=== PATIENT | female | born 1960 | race Caucasian/White ===

== ENCOUNTER 2025-04-29 08:55 | Outpatient (CLI) | payer MEDICARE, SELFPAY ==
--- OUTSIDE RECORDS SUMMARY | 2025-04-29 09:03 | XMS_ITS | Clinical Summary ---
Author Organization [facility] Address [address] [place] [address] Phone Care Team Providers Care Scale Balancer Name Role Phone Unavailable Primary Care Provider Unavailabl e Allergies No known active allergies Medications tirzepatide, weight loss, (Zepbound) 2.5 mg/0.5 mL Pen Injector Inject 2.5 mg by subcutaneous injection every 7 days. 2 mL 03/05/2024 12:31 PM CDT 4 Active tirzepatide (Mounjaro) 5 mg/0.5 mL Pen Injector Inject 5 mg by subcutaneous injection every 7 days. 2 mL 03/31/2024 1:33 PM CDT 4 Active tirzepatide, weight loss, (Zepbound) 5 mg/0.5 mL Pen Injector Inject 5 mg by subcutaneous injection every 7 days. 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 2 mL 2 07/14/2024 1:52 PM CDT 4 Active tirzepatide, weight loss, (Zepbound) 5 mg/0.5 mL Pen Injector Inject 5 mg by subcutaneous injection every 7 days. 2 mL 2 4 Active tirzepatide, weight loss, (Zepbound) 5 mg/0.5 mL Pen Injector Inject contents of 1 syringe (5 mg) by subcutaneous injection every 7 days. 2 mL 2 02/16/2025 2:00 PM CDT 5 Active Encounters Date Type Department Care Team Description 04/21/2025 External Device Data [facility] ABSTRACTION Provider, Abstract 04/15/2025 External Device Data [facility] ABSTRACTION Provider, Abstract 04/14/2025 External Device Data [facility] ABSTRACTION Provider, Abstract 02/11/2025 External Device Data [facility] ABSTRACTION Provider, Abstract 01/31/2025 External Device Data [facility] ABSTRACTION Provider, Abstract 01/30/2025 External Device Data [facility] ABSTRACTION Provider, Abstract 01/27/2025 External Device Data [facility] ABSTRACTION Provider, Abstract from Last 3 Months Social History Tobacco Use Types Packs/Day Years Used Date Smoking Tobacco: Never Assessed Comments Unknown Sex and Gender Information Value Date Recorded Sex Assigned at Not on file Legal 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 Gender Identity Not on file Sexual Orientation Not on file Plan of Treatment Health Maintenance Due Date Last Done Comments DTAP/TDAP/TD VACCINES (1 - Tdap) 1979 BREAST CANCER SCREENING 2000 COLORECTAL SCREENING 2005 Colorectal Cancer Screening 2005 FIT-DNA Q 3 years 2005 FIT/FOBT Q 1 year 2005 Flex Sig/CT Colonography Q 5 years 2005 PNEUMOCOCCAL VACCINE 50+ YEARS (1 of 1 - PCV) 04/04/20 10 ZOSTER VACCINE (1 of 2) 2010 INFLUENZA VACCINE (#1) 2024 OSTEOPOROSIS SCREENING 2025 RSV VACCINE (60+ or ) (1 - 1-dose 75+ series) 2035 Insurance RX [employer] Commercial RX [facility] [employer] Ne[employer], [employer] Commercial RX PHARM[facility]Y [employer], [facility] Commercial RX [employer] Member Subscriber Plan / Payer (Ef fective for All Dates) Name:Alma Ocasio Relation to Subscriber:Self Name:Alma Ocasio Payer ID:Not on file Group ID:[id number] Type:RX Commercial Address: [address]
--- OUTSIDE RECORDS SUMMARY | 2025-04-29 09:04 | XMS_ITS | Patient Health Record ---
Author Organization [facility] Address [address] [place] [address] Care Team Providers Care Manager Event Name Role Phone Walker (retired) Shannon WEISS Primary Care Provid er Unavailable ALEXUS GARCIA, OSWALD Unavailable Reason For Referral No Information Plan Of Treatment No Information Insurance Providers Payer Name Payer Address Payer Phone Subscriber Number Group Number Insured Name Patient Relationship to Insured Coverage Start Date Coverage End Date [facility] [address] [place], [place] [id number] Amarjit Alma Self - patient is the insured
== END 2025-04-29 08:56 | disposition home or self-care (01) ==
LOC: ANHAUDIO 08:56
PROVIDERS: PCP Family Medicine; Visit Provider Otolaryngology
DX: H93.19 Tinnitus, unspecified ear (principal); R42 Dizziness and giddiness; H74.8X2 Other specified disorders of left middle ear and mastoid; R49.9 Unspecified voice and resonance disorder; K21.9 Gastro-esophageal reflux disease without esophagitis; H73.92 Unspecified disorder of tympanic membrane, left ear; H90.3 Sensorineural hearing loss, bilateral
CPT/HCPCS: 92557; 92567

== ENCOUNTER 2025-09-11 12:54 | Outpatient (CLI) | payer MEDICARE, SELFPAY ==
--- NOTE | ~2025-09-11 | CT_ITS ---
EXAMINATION: CT sinus wo con COMPARISON: None HISTORY: Unspecified voice and resonance disorder, sinusitis TECHNIQUE: Axial images were obtained without IV contrast. Sagittal, coronal reconstruction images were obtained from the axial views. CT scan performed using dose optimization techniques including the following automated exposure control; adjustment of mA and/or kV; use of iterative reconstruction technique. Automatic exposure control was used to reduce radiation dose. Permanent radiation dose record is archived to PACS. FINDINGS: Visualized brain parenchyma, optic globes and soft tissues are unremarkable. The frontal sinuses are unremarkable. Minimal mucosal thickening in the ethmoidal air cells. Minimal mucosal thickening in the maxillary sinuses. The ostiomeatal complexes are patent. Nasal septum is deviated to the left with mild thickening of the turbinates and mild narrowing of the left nasal cavity. The sphenoid sinuses are unremarkable. There is no osseous destruction or wall thickening identified. IMPRESSION: Minimal sinusitis. Reviewed, dictated and finalized at location P. IMPRESSION: Minimal sinusitis.
--- NOTE | ~2025-09-11 | XR_ITS ---
EXAMINATION: XR hip BI 2V w AP pelvis, 09/11/2025 12:59 CDT HISTORY: M25.551 - Pain in right hip COMPARISON: No comparisons available. Findings: No acute fracture or malalignment. Severe bilateral degenerative changes Soft tissues unremarkable. Impression: No acute fracture or malalignment. Reviewed, dictated and finalized at location P. Impression: No acute fracture or malalignment.
== END 2025-09-11 12:55 | disposition home or self-care (01) ==
LOC: MICIMG 12:56
PROVIDERS: PCP Family Medicine; Visit Provider Otolaryngology
DX: R49.9 Unspecified voice and resonance disorder (principal); J32.9 Chronic sinusitis, unspecified; M16.0 Bilateral primary osteoarthritis of hip
CPT/HCPCS: 70486; 73521